=== PATIENT | female | born 1945 | race Hispanic/Latino ===

== ENCOUNTER 2018-09-28 10:57 | Inpatient (IN) | payer BC, MEDICARE ==
--- NOTE | 2018-09-28 11:18 | ED PDOC ---
Arrival/HPI - General Chief Complaint: Chest Pain Historian: Patient - Critical Care Critical Care Minutes: 45 minutes - History of Present Illness Narrative History of Present Illness (Text): 09/28/18 11:14 A 73 year old female, whose past medical history includes hypertension, presents to the emergency department with a complaint of rapid heart rate. Patient notes that she has been coughing for the past 3 days with associated white sputum production and diarrhea. Patient notes that she was being seen at her PMD's office when he advised her to come the emergency department for evaluation of rapid heart race in the office. The patient denies any pain at this time. She denies fevers, chills, headache, dizziness, chest pain, shortness of breath, dyspnea on exertion, abdominal pain, nausea, vomiting, back pain, neck pain, urinary/bowel changes, or any other complaint. PMD: Dr. Mary Time/Duration: Prior to Arrival Symptom Onset: Sudden Symptom Course: Unchanged Activities at Onset: Rest, Light Context: Home Past Medical History - Provider Review Nursing Documentation Reviewed: Yes - Infectious Disease Hx of Infectious Diseases: None - Reproductive Menopause: Yes - Cardiac Hx Hypertension: Yes - Pulmonary Hx Respiratory Disorders: No - Neurological Hx Neurological Disorder: No - HEENT Hx HEENT Disorder: No - Renal Hx Renal Disorder: No - Endocrine/Metabolic Hx Endocrine Disorders: No - Hematological/Oncological Hx Blood Disorders: No - Integumentary Hx Dermatological Disorder: No - Musculoskeletal/Rheumatological Hx Musculoskeletal Disorders: No - Gastrointestinal Hx Gastrointestinal Disorders: No - Genitourinary/Gynecological Hx Genitourinary Disorders: No - Psychiatric Hx Psychophysiologic Disorder: No Hx Substance Use: No - Anesthesia Hx Anesthesia: No Hx Anesthesia Reactions: No Hx Malignant Hyperthermia: No Family/Social History - Physician Review Nursing Documentation Reviewed: Yes Family/Social History: No Known Family HX Smoking Status: Never Smoked Hx Alcohol Use: No Hx Substance Use: No Allergies/Home Meds Allergies/Adverse Reactions: Allergies No Known Allergies Allergy (Verified 07/03/16 23:43) Home Medications: Home Meds Medication Instructions Recorded Confirmed amLODIPine [Norvasc] 0 mg PO DAILY 09/28/18 09/28/18 Review of Systems - Physician Review All systems were reviewed & negative as marked: Yes - Review of Systems Constitutional: absent: Fevers Respiratory: Cough, Sputum. absent: SOB Cardiovascular: Palpitations. absent: Chest Pain, LESTER Gastrointestinal: Diarrhea. absent: Abdominal Pain, Stool Changes, Nausea, Vomiting Genitourinary Female: absent: Urine Output Changes Musculoskeletal: absent: Back Pain, Neck Pain Neurological: absent: Headache, Dizziness Physical Exam Vital Signs Reviewed: Yes Vital Signs Temp Pulse Resp BP Pulse Ox 09/28/18 10:57 98.1 F 127 H 20 102/87 95 Temperature: Afebrile Blood Pressure: Normal Pulse: Tachycardic Respiratory Rate: Normal Appearance: Positive for: Well-Appearing, Non-Toxic, Comfortable Pain Distress: None Mental Status: Positive for: Alert and Oriented X 3 - Systems Exam Head: Present: Atraumatic, Normocephalic Pupils: Present: PERRL Extroacular Muscles: Present: EOMI Conjunctiva: Present: Normal Mouth: Present: Moist Mucous Membranes Neck: Present: Normal Range of Motion Respiratory/Chest: Present: Good Air Exchange, Rales (Rales at the bases bilaterally. ). No: Respiratory Distress, Accessory Muscle Use Cardiovascular: Present: Murmurs (Systolic murmur), Irregular Rhythm (irregularly irregular) Abdomen: No: Tenderness, Distention, Peritoneal Signs Back: Present: Normal Inspection Upper Extremity: Present: Normal Inspection. No: Cyanosis, Edema Lower Extremity: Present: Edema (trace edema bilaterally. ) Neurological: Present: GCS=15, CN II-XII Intact, Speech Normal Skin: Present: Warm, Dry, Normal Color. No: Rashes Psychiatric: Present: Alert, Oriented x 3, Normal Insight, Normal Concentration Medical Decision Making ED Course and Treatment: 09/28/18 11:21 Impression: A 73 year old female presents to the emergency department from PMD's office with a complaint of sudden onset rapid heart rate. Plan: -- EKG -- Chest X-ray -- Labs -- Blood Culture -- Cardizem -- Reassess and disposition Prior Visits: Notes and results from previous visits were reviewed. Progress Notes: 09/28/18 11:05: EKG read and interpreted by me shows A- Fib at 155 BPM. Normal [place]. 09/28/18 12:12: Case discussed in detail with Dr. Holt who accepts patient for admission to telemetry. Chest X-ray Dictator : Thelma Lock MD Report Date : 09/28/2018 12:03:52 IMPRESSION: Moderate right and small left pleural effusions. Suspect underlying compressive atelectasis however superimposed pneumonia cannot be excluded. Moderate pulmonary venous congestion. PROCEDURE: CT Chest with contrast Dictator : Neeraj Bhatti MD Report Date : 09/28/2018 13:12:44 IMPRESSION: Large right pleural effusion. Small left effusion. Right lower lobe consolidation. - Critical Care Critical Care Minutes: 45 minutes - Lab Interpretations I have reviewed the lab results: Yes - EKG Interpretation Interpreted by ED Physician: Yes Type: 12 lead EKG - Scribe Statement The provider has reviewed the documentation as recorded by the Scribe Fior Malave Provider Scribe Attestation: All medical record entries made by the Scribe were at my direction and personally dictated by me. I have reviewed the chart and agree that the record accurately reflects my personal performance of the history, physical exam, medical decision making, and the department course for this patient. I have also personally directed, reviewed, and agree with the discharge instructions and disposition. Disposition/Present on Arrival - Present on Arrival Any Indicators Present on Arrival: No History of DVT/PE: No History of Uncontrolled Diabetes: No Urinary Catheter: No History of Decub. Ulcer: No History Surgical Site Infection Following: None - Disposition Have Diagnosis and Disposition been Completed?: Yes Diagnosis: Rapid atrial fibrillation, New onset atrial fibrillation Disposition: HOSPITALIZED Disposition Time: 12:00 Condition: GUARDED
[2018-09-28 11:32] LABS: BASO # 0.01 K/mm3 (0.0-2.0); BASO % 0.1 % (0.0-3.0); EOS % 0.1 % (1.5-5.0); HEMOGLOBIN 14.2 g/dL (12.0-16.0); LYMPH # 1.1 (1.2-3.4); LYMPH % 11.3 % (22.0-35.0); MEAN CELL VOLUME 94.7 fl (80.0-105.0); MEAN CORPUSCULAR HEMOGLOBIN 31.3 pg (25.0-35.0); MEAN CORPUSCULAR HGB CONC 33.1 g/dl (31.0-37.0); MEAN PLATELET VOLUME 9.9 fl (7.0-11.0); MONO # 0.9 (0.1-0.6); MONO % 8.5 % (1.0-6.0); RBC 4.53 10^6/uL (3.5-6.1); RED CELL DISTRIBUTION WIDTH 14.7 % (11.5-14.5)
[2018-09-28 11:41] LABS: ALB/GLOB RATIO 1.3 (1.1-1.8); ALBUMIN 4.3 g/dL (3.0-4.8); ALT/SGPT 38 U/L (7-56); AST/SGOT 32 U/L (14-36); BLOOD UREA NITROGEN 17 mg/dL (7-21); CALCIUM 9.4 mg/dL (8.4-10.5); GFR NON-AFRICAN AMERICAN > 60
[2018-09-28 11:53] LABS: B-TYPE NATRIURETIC PEPTIDE 4070 pg/mL (0-450); TROPONIN I 0.02 ng/mL
[2018-09-28 11:59] LABS: FREE T4 1.87 ng/dL (0.78-2.19)
--- NOTE | 2018-09-28 12:07 | RAD ---
Date of service: 09/28/2018 HISTORY: cough r/o infiltrate COMPARISON: 07/30/2012 FINDINGS: LUNGS: There is moderate pulmonary venous congestion. There is airspace disease in both lower lobes. PLEURA: Moderate right and small left pleural effusions. No pneumothorax. CARDIOVASCULAR: Mild cardiomegaly with prominent central vasculature. There are aortic atherosclerotic calcifications present. OSSEOUS STRUCTURES: Within normal limits for the patient's age. VISUALIZED UPPER ABDOMEN: Normal. OTHER FINDINGS: None. IMPRESSION: Moderate right and small left pleural effusions. Suspect underlying compressive atelectasis however superimposed pneumonia cannot be excluded. Moderate pulmonary venous congestion.
[2018-09-28 12:13] LABS: T3 1.1 ng/mL (0.97-1.69)
[2018-09-28] MEDS ORDERED: Iohexol 350 MG/100 ML VIAL ONE (12:36)
--- NOTE | 2018-09-28 12:42 | CP.PCM.HP ---
<FabioLei - Last Filed: 09/28/18 12:47> History of Present Illness - History of Present Illness History of Present Illness: Lei Mccarthy D.O. PGY-3, Internal Medicine Resident, Dr. Holt's Service, H&P CC: new onset Afib 73-year-old female with a past medical history of hypertension who presents from her primary medical doctor's office after she was found to have new onset of atrial fibrillation. Patient was seen and examined in ER 4. Patient is accompanied by her son who was at bedside. Patient relates how over the last 3 to 4 days she has not been feeling well. Patient has been having a lot of cough that has been nonproductive except for may be just some whitish sputum. Denies any fevers or chills. Denies any sick contacts or recent long travel or immobility. Denies any recent cruises or visits to hotels or other in close spaces. Does admit that every time that she coughs she would have a little bit of diarrhea [place] 7. Unsure if she ate anything out of the ordinary. No recent antibiotic use. Patient states that she normally is compliant with her Norvasc of unknown strength but that this morning she was in a hi to get to the do ctor's office so she did not take it. At this time states that she is feeling much better. Still having a little bit of difficulty with deep breathing. Admits to chronic leg swelling that worsens throughout the day and improves overnight. No orthopnea though. Otherwise denies any fevers, chills, nausea, vomiting, lightheadedness, focal deficits dysuria, hematuria, or any other worrisome complaints. PMH: Hypertension SH: Denies tobacco use, social EtOH in the past, denies illicit drug use FH: Denies Allergies: NKA Meds: Norvasc of unknown strength PMD: Dr. Mary Present on Admission - Present on Admission Any Indicators Present on Admission: No Review of Systems - Review of Systems All systems: reviewed and no additional remarkable complaints except (as per HPI) Past Patient History - Infectious Disease Hx of Infectious Diseases: None - Past Social History Smoking Status: Never Smoked - CARDIAC Hx Hypertension: Yes - PULMONARY Hx Respiratory Disorders: No - NEUROLOGICAL Hx Neurological Disorder: No - HEENT Hx HEENT Problems: No - RENAL Hx Chronic Kidney Disease: No - ENDOCRINE/METABOLIC Hx Endocrine Disorders: No - HEMATOLOGICAL/ONCOLOGICAL Hx Blood Disorders: No - INTEGUMENTARY Hx Dermatological Problems: No - MUSCULOSKELETAL/RHEUMATOLOGICAL Hx Musculoskeletal Disorders: No - GASTROINTESTINAL Hx Gastrointestinal Disorders: No - GENITOURINARY/GYNECOLOGICAL Hx Genitourinary Disorders: No - PSYCHIATRIC Hx Psychophysiologic Disorder: No Hx Substance Use: No - SURGICAL HISTORY Hx Surgeries: No - ANESTHESIA Hx Anesthesia: No Hx Anesthesia Reactions: No Hx Malignant Hyperthermia: No Meds Allergies/Adverse Reactions: Allergies Allergy/AdvReac Type Severity Reaction Status Date / Time No Known Allergies Allergy Verified 07/03/16 23:43 Physical Exam - Constitutional Additional comments: elderly female, mildly uncomfortable, anxious - Head Exam Head Exam: ATRAUMATIC, NORMOCEPHALIC - Eye Exam Eye Exam: EOMI. absent: Scleral icterus - ENT Exam ENT Exam: Mucous Membranes Moist, Normal Oropharynx - Neck Exam Neck exam: Positive for: Normal Inspection. Negative for: Lymphadenopathy - Respiratory Exam Respiratory Exam: Rales (bibasilar, decreased breath sounds over RLL) - Cardiovascular Exam Cardiovascular Exam: Irregular Rhythm, +S1, +S2 - GI/Abdominal Exam GI & Abdominal Exam: Normal Bowel Sounds, Soft. absent: Tenderness - Extremities Exam Extremities exam: Positive for: pedal edema (+2). Negative for: calf tenderness - Neurological Exam Neurological exam: Alert, CN II-XII Intact, Oriented x3 - Skin Skin Exam: Dry, Warm Results - Vital Signs Recent Vital Signs: Last Vital Signs Temp 98.1 F 09/28/18 10:57 Pulse 88 09/28/18 11:41 Resp 19 09/28/18 11:56 BP 148/77 09/28/18 11:56 Pulse Ox 96 09/28/18 11:56 - Labs Result Diagrams: 09/28/18 11:17 09/28/18 11:17 Labs: Laboratory Results - last 24 hr 09/28/18 09/28/18 09/28/18 11:17 11:17 11:17 WBC 10.0 RBC 4.53 Hgb 14.2 Hct 42.9 MCV 94.7 MCH 31.3 MCHC 33.1 RDW 14.7 H Plt Count 318 MPV 9.9 Neut % (Auto) 80.0 H Lymph % (Auto) 11.3 L [place] % (Auto) 8.5 H Eos % (Auto) 0.1 L Baso % (Auto) 0.1 Lymph # (Auto) 1.1 L [place] # (Auto) 0.9 H Eos # (Auto) 0.0 Baso # (Auto) 0.01 Absolute Neuts (auto) 7.98 H Sodium 139 Potassium 4.0 Chloride 103 Carbon Dioxide 25 Anion Gap 15 BUN 17 Creatinine 0.7 Est GFR ( Amer) > 60 Est GFR (Non-Af Amer) > 60 Random Glucose 139 H Calcium 9.4 Magnesium 2.1 Total Bilirubin 2.1 H AST 32 ALT 38 Alkaline Phosphatase 135 H Lactate Dehydrogenase 557 Total Creatine Kinase 64 Troponin I 0.02 NT-Pro-B Natriuret Pep 4070 H Total Protein 7.6 Albumin 4.3 Globulin 3.3 Albumin/Globulin Ratio 1.3 Free T4 1.87 Total T3 1.10 TSH 3rd Generation 4.73 H Assessment & Plan - Assessment and Plan (Free Text) Assessment: 73-year-old female with a past medical history of hypertension who presents from her primary medical doctor's office after she was found to have new onset of atrial fibrillation. Plan: 1. New onset atrial fibrillation 2. Bilateral pleural effusions 3. Uncontrolled blood pressure 4. Shortness of breath with nonproductive cough Patient will be admitted for evaluation. Received 20 mg of Cardizem IV in the ER with improvement in her heart rate. EKG on presentation showed atrial fibrillation with rapid ventricular rate at 155 bpm. Patient then remembered that she takes amlodipine and on low-dose, given 10 mg of amlodipine in the ER. Presentation is concerning as she has not had atrial fibrillation in the past and not appears to have signs of acute heart failure. BNP elevated. 20 of Lasix to be given now in the ER. We will continue with 20 mg twice daily. Will continue amlodipine 10 mg p.o. daily. We will repeat troponins, first ones are negative. Will obtain a cardiology consult with Dr. Maradiaga. Echocardiogram has been ordered. We will start a heart healthy diet. To better elucidate her pulmonary issues at this time will obtain a chest CT with contrast. Is afebrile with no leukocytosis so infectious etiology does not seem likely. However will obtain a urinalysis. Discussion was had at bedside with both the patient and the patient's son about her current clinical situation. All questions were welcomed and answered to the verbal satisfaction. We will follow patient closely. Will elevate head of bed. Supplement O2 via nasal cannula as needed shortness of breath. Patient was seen and examined and case to be discussed at length with attending physician. - Date & Time Date: 09/28/18 Time: 12:20 <Joe Holt - Last Filed: 09/29/18 15:46> Results - Vital Signs Recent Vital Signs: Last Vital Signs Temp 98.1 F 09/29/18 12:00 Pulse 87 09/29/18 12:00 Resp 19 09/29/18 12:00 BP 151/84 H 09/29/18 12:00 Pulse Ox 94 L 09/29/18 06:00 - Labs Result Diagrams: 09/29/18 06:40 09/29/18 06:40 Labs: Laboratory Results - last 24 hr 09/28/18 09/29/18 09/29/18 17:47 06:40 06:40 WBC 5.8 D RBC 4.02 Hgb 12.3 Hct 38.3 MCV 95.3 MCH 30.6 MCHC 32.1 RDW 14.7 H Plt Count 256 MPV 9.9 Neut % (Auto) 62.4 Lymph % (Auto) 25.2 [place] % (Auto) 11.3 H Eos % (Auto) 0.9 L Baso % (Auto) 0.2 Lymph # (Auto) 1.5 [place] # (Auto) 0.7 H Eos # (Auto) 0.1 Baso # (Auto) 0.01 Absolute Neuts (auto) 3.60 Sodium 139 Potassium 3.7 Chloride 102 Carbon Dioxide 29 Anion Gap 11 BUN 15 Creatinine 0.7 Est GFR ( Amer) > 60 Est GFR (Non-Af Amer) > 60 Random Glucose 110 Hemoglobin A1c Calcium 8.5 Phosphorus 3.5 Magnesium 2.1 Total Bilirubin 1.6 H AST 24 ALT 42 Alkaline Phosphatase 87 Troponin I 0.02 0.02 Total Protein 6.5 Albumin 3.6 Globulin 3.0 Albumin/Globulin Ratio 1.2 Triglycerides Cholesterol LDL Cholesterol Direct HDL Cholesterol 09/29/18 09/29/18 07:00 07:00 WBC RBC Hgb Hct MCV MCH MCHC RDW Plt Count MPV Neut % (Auto) Lymph % (Auto) [place] % (Auto) Eos % (Auto) Baso % (Auto) Lymph # (Auto) [place] # (Auto) Eos # (Auto) Baso # (Auto) Absolute Neuts (auto) Sodium Potassium Chloride Carbon Dioxide Anion Gap BUN Creatinine Est GFR ( Amer) Est GFR (Non-Af Amer) Random Glucose Hemoglobin A1c 5.6 Calcium Phosphorus Magnesium Total Bilirubin AST ALT Alkaline Phosphatase Troponin I Total Protein Albumin Globulin Albumin/Globulin Ratio Triglycerides 64 Cholesterol 143 LDL Cholesterol Direct 91 HDL Cholesterol 46 Assessment & Plan - Assessment and Plan (Free Text) Plan: Pt seen and examined by me. I have reviewed the note of the medical office professional instructor and I agree with it. I have discussed the assessment and plan with the resident. I have reviewed the medications and the last labs. Pt with new onset A fib. She has a R pleural effusion and will need further evaluation. She has been started on Lasix. An echo has been ordered. TSH is nl. She is on a cardizem drip and will need to change to PO medications. She may need stress test. She has a cough and is on medications. CT of the chest has been reviewed.
--- NOTE | 2018-09-28 13:18 | CT ---
Date of service: 09/28/2018 PROCEDURE: CT Chest with contrast HISTORY: SOB+cough x3d, new onset Afib COMPARISON: None available. TECHNIQUE: Contiguous axial images were obtained through the chest with intravenous contrast enhancement. Sagittal and coronal reconstructions were performed. IV contrast: 100 cc of Omni 350 Radiation dose: Total exam DLP = 363.55 mGy-cm. This CT exam was performed using one or more of the following dose reduction techniques: Automated exposure control, adjustment of the mA and/or kV according to patient size, and/or use of iterative reconstruction technique. FINDINGS: LUNGS: Dense consolidation in the right lower lobe with air bronchograms. MEDIASTINUM: Unremarkable thoracic aorta. No aneurysm or dissection. Normal sized heart. Main pulmonary artery unremarkable. No vascular congestion. No lymphadenopathy. Aortic calcification PLEURA: Large pleural effusion on the right. Small effusion on the left BONES: No fracture. No destructive lesion. UPPER ABDOMEN: Grossly unremarkable. OTHER FINDINGS: None. IMPRESSION: Large right pleural effusion. Small left effusion. Right lower lobe consolidation.
[2018-09-28 14:48] LABS: URINE BILIRUBIN NEGATIVE (NEGATIVE); URINE BLOOD NEGATIVE (NEGATIVE); URINE GLUCOSE (UA) NEGATIVE (NEGATIVE); URINE LEUKOCYTE ESTERASE TRACE Leu/uL (NEGATIVE); URINE PROTEIN 30 mg/dL (<30 mg/dL); URINE UROBILINOGEN 0.2 E.U./dL (<1 E.U./dL)
[2018-09-28 14:55] LABS: URINE APPEARANCE CLEAR (CLEAR); URINE COLOR YELLOW (YELLOW)
[2018-09-28 14:58] LABS: URINE BACTERIA MANY /hpf; URINE RBC 0 - 2 /hpf (0-2)
[2018-09-28 15:42] VITALS: BMI 31.1
[2018-09-28] MEDS: diltiaZEM IVPB 100mg in NS 100 ML IV PRN ×2 (15:42→23:46)
--- NOTE | 2018-09-28 18:24 | CARD ---
APPROVED REPORT Date of service: 09/28/2018 EXAM: Two-dimensional and M-mode echocardiogram with Doppler and color Doppler. INDICATION Atrial Fibrillation 2D DIMENSIONS Left Atrium (2D)4.9 (1.6-4.0cm)IVSd1.3 (0.7-1.1cm) LVDd4.5 (3.9-5.9cm)PWd1.3 (0.7-1.1cm) LVDs3.2 (2.5-4.0cm)FS (%) 29.2 % LVEF (%)56.1 (>50%) M-Mode DIMENSIONS Aortic Root2.70 (2.2-3.7cm)Aortic Cusp Exc.1.30 (1.5-2.0cm) Aortic Valve AoV Peak Penuymmm908.0cm/[place] Peak GR.23mmHg Mitral Valve E/A ratio0.0 TDI E/Lateral E'0.0E/Medial E'0.0 Tricuspid Valve TR Peak [id number] [id number] Peak Gr.36mmHg [id number] LEFT VENTRICLE The left ventricle is normal size. There is mild concentric left ventricular hypertrophy. The left ventricular function is normal. The left ventricular ejection fraction is within the normal range. There is normal LV segmental wall motion. RIGHT VENTRICLE The right ventricle is normal size. The right ventricular systolic function is normal. ATRIA The left atrium is moderately dilated. The right atrium is mildly dilated. The interatrial septum is intact with no evidence for an atrial septal defect. AORTIC VALVE The aortic valve is moderately thickened. There is moderate aortic regurgitation. There is no aortic valvular stenosis. MITRAL VALVE The mitral valve is moderately thickened. Mitral regurgitation is moderate. TRICUSPID VALVE The tricuspid valve is normal in structure. There is moderate tricuspid regurgitation. PULMONIC VALVE The pulmonary valve is normal in structure. GREAT VESSELS The aortic root is normal in size. The IVC is normal in size and collapses >50% with inspiration. PERICARDIAL EFFUSION There is no pleural effusion. There is no pericardial effusion. <Conclusion> Biatrial enlargement. Mild concentric LVH. Normal LV systolic function. Moderate MR. Moderate AI. Moderate TR.
[2018-09-28] MEDS: guaiFENesin-DM 600-30 mg ER Tab PO SCH (19:27)
--- NOTE | 2018-09-28 20:56 | CARD ---
APPROVED REPORT Date of service: 09/28/2018 EKG Measurement Heart [id number] <Conclusion> Atrial fibrillation with rapid ventricular response Anteroseptal infarct, age undetermined NDSSTT abnormalities. CCR Abnormal ECG
[2018-09-29 07:09] LABS: BASO # 0.01 K/mm3 (0.0-2.0); BASO % 0.2 % (0.0-3.0); EOS # 0.1 (0.0-0.7); EOS % 0.9 % (1.5-5.0); HEMOGLOBIN 12.3 g/dL (12.0-16.0); LYMPH # 1.5 (1.2-3.4); LYMPH % 25.2 % (22.0-35.0); MEAN CELL VOLUME 95.3 fl (80.0-105.0); MEAN CORPUSCULAR HEMOGLOBIN 30.6 pg (25.0-35.0); MEAN CORPUSCULAR HGB CONC 32.1 g/dl (31.0-37.0); MEAN PLATELET VOLUME 9.9 fl (7.0-11.0); MONO # 0.7 (0.1-0.6); MONO % 11.3 % (1.0-6.0); RBC 4.02 10^6/uL (3.5-6.1); RED CELL DISTRIBUTION WIDTH 14.7 % (11.5-14.5); WHITE BLOOD COUNT 5.8 10^3/uL (4.5-11.0)
[2018-09-29 07:36] LABS: TROPONIN I 0.02 ng/mL
[2018-09-29 07:37] LABS: ALB/GLOB RATIO 1.2 (1.1-1.8); ALBUMIN 3.6 g/dL (3.0-4.8); ALT/SGPT 42 U/L (7-56); AST/SGOT 24 U/L (14-36); BLOOD UREA NITROGEN 15 mg/dL (7-21); CALCIUM 8.5 mg/dL (8.4-10.5); GFR NON-AFRICAN AMERICAN > 60
[2018-09-29 08:15] LABS: HDL CHOLESTEROL 46 mg/dL (29-60)
[2018-09-29 08:26] LABS: LDL CHOLESTEROL 91 mg/dL (0-129)
[2018-09-29] MEDS: guaiFENesin-DM 600-30 mg ER Tab PO SCH ×2 (09:00→18:04)
[2018-09-29] MEDS: Enoxaparin 80 mg Syringe SC SCH ×2 (09:00→19:31)
[2018-09-29] MEDS: diltiaZEM IVPB 100mg in NS 100 ML IV PRN (09:00)
--- NOTE | 2018-09-29 11:06 | CP.PCM.PCO ---
Additional Comments - Additional Comments Additional Comments: new onset afib continue management as per cardiology, possible thoracentesis by .
--- NOTE | 2018-09-29 12:25 | CP.PCM.PN ---
<Lei Mccarthy - Last Filed: 09/29/18 15:40> Subjective - Date & Time of Evaluation Date of Evaluation: 09/29/18 Time of Evaluation: 07:10 - Subjective Subjective: Lei Mccarthy D.O. PGY-3, Internal Medicine Resident, Dr. Holt's Service, Progress Note 73-year-old female with a past medical history of hypertension who presents from her primary medical doctor's office after she was found to have new onset of atrial fibrillation. Patient was seen and examined at bedside. States that she feels better than on arrival but still some shortness of breath. Somewhat anxious. Wants to get better. Objective - Vital Signs/Intake and Output Vital Signs (last 24 hours): Temp Pulse Resp BP Pulse Ox 98.1 F 87 19 151/84 H 94 L 09/29/18 12:00 09/29/18 12:00 09/29/18 12:00 09/29/18 12:00 09/29/18 06:00 Intake and Output: 09/29/18 09/29/18 06:59 18:59 Intake Total 340 100 Balance 340 100 - Medications Medications: Current Medications Arformoterol Tartrate (Brovana) 15 mcg IH [id number] [facility] Budesonide (Pulmicort Respules) 0.5 mg IH [id number] [facility] Clonidine HCl (Catapres) 0.1 mg PO Q6 PRN PRN Reason: hypertension Enoxaparin Sodium (Lovenox) 70 mg SC Q12H [facility]; Protocol Last Admin: 09/29/18 09:00 Dose: 70 mg Furosemide (Lasix) 40 mg IVP BID [facility] Guaifenesin/Dextromethorphan (Mucinex-Dm 600-30 Mg) 1 tab PO BID [facility] Last Admin: 09/29/18 09:00 Dose: 1 tab Metoprolol Tartrate (Lopressor) 50 mg PO BRKDIN [facility] Spironolactone (Aldactone) 25 mg PO BID [facility] - Labs Labs: 09/29/18 06:40 09/29/18 06:40 - Constitutional Additional comments: elderly female, well nourished, anxious - Head Exam Head Exam: ATRAUMATIC, NORMOCEPHALIC - Eye Exam Eye Exam: EOMI. absent: Scleral icterus - ENT Exam ENT Exam: Mucous Membranes Moist, Normal Oropharynx - Neck Exam Neck exam: Positive for: Normal Inspection. Negative for: Lymphadenopathy - Respiratory Exam Respiratory Exam: Rales somewhat decreased, better air movement, dullness to percussion midway thru right lung ontiveros with decreased breath sounds over RLL - Cardiovascular Exam Cardiovascular Exam: Irregular Rhythm, +S1, +S2 - GI/Abdominal Exam GI & Abdominal Exam: Normal Bowel Sounds, Soft. absent: Tenderness - Extremities Exam Extremities exam: Positive for: pedal edema (+2). Negative for: calf tenderness - Neurological Exam Neurological exam: Alert, CN II-XII Intact, Oriented x3 - Skin Skin Exam: Dry, Warm Assessment and Plan - Assessment and Plan (Free Text) Assessment: 73-year-old female with a past medical history of hypertension who presents from her primary medical doctor's office after she was found to have new onset of atrial fibrillation. Plan: 1. New onset atrial fibrillation 2. New decompensated heart failure 3. Bilateral pleural effusions R>L 4. Uncontrolled blood pressure 5. Shortness of breath with nonproductive cough Patient symptomatically somewhat better. Heart rate has been controlled with Cardizem drip. Cardiology note was reviewed and recommendations appreciated. Patient has been transitioned to metoprolol p.o. Patient's furosemide has been increased from 20 mg to 40 mg twice daily and spironolactone added by cardiology. Repeat electrocardiogram shows the patient is still in atrial fibrillation. Echocardiogram revealed evidence of biatrial enlargement and normal LV systolic function with mild concentric LVH, moderate mitral regurg, moderate tricuspid regurg, and moderate aortic insufficiency. Troponins have been negative x3. Etiology of new atrial fibrillation most likely secondary to hypertension and valvular disease as noted. Patient has a CHADSVASC of 4 and given her atrial fibrillation will be started on Lovenox full therapeutic dose. We will request pulmonary consultation with Dr. Estrada. We will also request consultation with interventional radiology Dr. Khalil for possible thoracentesis and fluid analysis/cytology given the large difference between the right and left and elucidate any other etiologies. Blood cultures have been negative 2 out of [address] 1[address] Chest CT did reveal a possible consolidation although this is most likely compressive atelectasis from the large right pleural effusion and patient has no signs of active infection at this time so we will not be starting antibiotics. Incentive spirometer ordered and patient educated on its use. Patient was seen and examined and case to be discussed at length with attending physician. <JonathonJoe S - Last Filed: 09/29/18 15:59> Objective - Vital Signs/Intake and Output Vital Signs (last 24 hours): Temp Pulse Resp BP Pulse Ox 98.1 F 87 19 151/84 H 94 L 09/29/18 12:00 09/29/18 12:00 09/29/18 12:00 09/29/18 12:00 09/29/18 06:00 Intake and Output: 09/29/18 09/29/18 06:59 18:59 Intake Total 340 100 Balance 340 100 - Medications Medications: Current Medications Arformoterol Tartrate (Brovana) 15 mcg IH [id number] [facility] Budesonide (Pulmicort Respules) 0.5 mg IH [id number] [facility] Clonidine HCl (Catapres) 0.1 mg PO Q6 PRN PRN Reason: hypertension Enoxaparin Sodium (Lovenox) 70 mg SC Q12H [facility]; Protocol Last Admin: 09/29/18 09:00 Dose: 70 mg Furosemide (Lasix) 40 mg IVP BID [facility] Guaifenesin/Dextromethorphan (Mucinex-Dm 600-30 Mg) 1 tab PO BID [facility] Last Admin: 09/29/18 09:00 Dose: 1 tab Metoprolol Tartrate (Lopressor) 50 mg PO BRKDIN [facility] Spironolactone (Aldactone) 25 mg PO BID [facility] - Labs Labs: 09/29/18 06:40 09/29/18 06:40 Assessment and Plan - Assessment and Plan (Free Text) Plan: Pt seen and examined by me. I have reviewed the note of the medical sales associate and I agree with it. I have discussed the assessment and plan with the resident. I have reviewed the medications and the last labs. Pt with new onset A fib. She has a R pleural effusion that will need further evaluation.
--- NOTE | 2018-09-29 12:32 | CON ---
DATE OF CONSULTATION: 09/29/2018 REQUESTING PHYSICIAN: Dr. Holt. REASON FOR CONSULTATION: Dyspnea, rapid atrial fibrillation. HISTORY: This is a 73-year-old woman with a history of hypertension, who presented to the emergency room complaining of worsening cough with a productive whitish sputum as well as rapid heart rate. She was seen by Dr. Mary in the office and noted be in rapid atrial fibrillation and was sent to the emergency room for evaluation. She denies any prior cardiac history. She denies any chest pain. She reportedly had a stress test several years ago, and this was reportedly unremarkable. In the emergency room, she was started on IV diltiazem and dose was increased as needed. The patient is now seen, lying in bed on telemetry. She is comfortable. She remains in atrial fibrillation, continues to have some productive cough. She is afebrile. PAST MEDICAL HISTORY: Her past history is notable for the problems mentioned above. She was hospitalized several years ago for severe epistaxis. She has had no recent bleeding episodes. MEDICATIONS: Her medications at home are amlodipine. Her current medications in the hospital include Brovana, IV diltiazem, Catapres p.r.n., Lasix 20 mg IV b.i.d., Lovenox, Mucinex, Norvasc 10 mg daily, and Pulmicort. ALLERGIES: NONE. SOCIAL HISTORY: She does not smoke or drink. She lives with her . FAMILY HISTORY: Both parents are from age-related illnesses. There is no family history of premature heart disease. REVIEW OF SYSTEMS: A 12-point review of systems is notably mainly for the problems mentioned above. She denies any PND or orthopnea at home. She has had mild ankle edema at times. PHYSICAL EXAMINATION: GENERAL: She is an elderly woman, who appears comfortable at rest. VITAL SIGNS: Her blood pressure is 136/64, pulse of 80 and irregularly regular, respirations are 16. She is in atrial fibrillation. She is afebrile. HEENT: Normocephalic, atraumatic. NECK: No JVD. Carotid upstrokes are 2+ bilaterally. CHEST: Diminished breath sounds at both bases with bilateral scattered rales. HEART: PMI displaced laterally with a systolic murmur at the left sternal border and apex. There is also a soft diastolic murmur present at the left sternal border. ABDOMEN: Soft, nontender with normoactive bowel sounds. EXTREMITIES: Trace ankle edema. SKIN: Warm and dry. PSYCHIATRIC: Normal mood and affect. NEUROLOGICAL: Alert and oriented x3. No gross motor or sensory deficits notable. DIAGNOSTIC DATA: Potassium 3.7, BUN and creatinine are 15 and 0.7. White count is 5.8, hemoglobin and hematocrit are 12.3 and 38.3 with a platelet count of 256,000, and BNP 4070. Three sets of cardiac enzymes are negative. TSH 4.73. Electrocardiogram reveals atrial fibrillation with a rapid ventricular response and a prior anteroseptal myocardial fraction pattern cannot be excluded, nonspecific ST-T abnormalities are noted. Chest x-ray reveals enlarged cardiac silhouette with bilateral effusions greater on the right than on the left as well as mild to moderate congestive changes. Echocardiogram was reviewed and reveals evidence of biatrial enlargement and normal LV systolic function with mild concentric LVH, moderate mitral regurgitation, moderate tricuspid regurgitation, as well as moderate aortic insufficiency. IMPRESSION: 1. Decompensated congestive heart failure, acute, diastolic, likely secondary to rapid atrial fibrillation and valvular heart disease. 2. Multivalvular heart disease with aortic, tricuspid, and mitral insufficiency. 3. Atrial fibrillation, initially with rapid ventricular response, likely secondary to a valvular heart disease and hypertension. 4. Rest of problems as noted. RECOMMENDATIONS: Oral anticoagulant therapy should be initiated at this time. If tolerated, oral beta-agus therapy will be begun in place of IV diltiazem. Norvasc can continue for now. Her old records will be reviewed including a prior stress test. IV diuretic therapy should continue. A repeat chest x-ray in 2-3 days would be advisable, and if her pleural effusion remains fairly large, consideration may need to be given to a thoracentesis. The need for sodium restriction was reviewed with her. Further recommendations will be made based upon her clinical course and response to the above interventions. Thank you for this consultation. I will be happy to follow along as needed. Rustam Alonso MD [facility]
--- NOTE | 2018-09-29 13:54 | CON ---
DATE: 09/29/2018 PULMONARY CONSULTATION REASON FOR CONSULTATION: Pleural effusion. REFERRING PHYSICIAN: oJe Holt MD. I did discuss the case with the nurse at length. I have also reviewed the chart at length, and discussed the case with the patient at length. HISTORY OF PRESENT ILLNESS: The patient is a 73-year-old female, with past medical history significant for hypertension, who presents to [facility] with a 5-day history of increasing shortness of breath at rest, dyspnea on exertion, cough, and whitish sputum production. There is no history of chest pain, coughing up of blood, or chest pain - made worse with deep respirations. There is no history of temperatures, chills, or infectious exposure. There is no history of night sweats, weight loss, or appetite change prior to the above events. There is no history of leg or calf pains. However, the patient does state that her ankles have been swollen for the past 5 days. No history of syncope or diaphoresis. No history of recent travel or trauma. REVIEW OF SYSTEMS: The patient does state to some diarrhea at home. No history of nausea or vomiting. No acute urinary symptoms. No new neurologic complaints. Rest of the review of systems is negative. ALLERGIES: THERE ARE NO KNOWN ALLERGIES. SOCIAL HISTORY: Negative for tobacco, negative for alcohol. FAMILY HISTORY: No inheritable diseases. HOME MEDICATIONS: Include amlodipine. PHYSICAL EXAMINATION: GENERAL: The patient appears comfortable this morning. She is not short of breath at rest. VITAL SIGNS: Temperature is 98.6, pulse 83, respiratory rate 18/20, blood pressure 136/67. Oxygen saturation on nasal cannula - 94%. HEENT: Normocephalic, atraumatic. No JVD. CARDIOVASCULAR: Systolic ejection murmur at the lower left sternal border. Positive S3 gallop. LUNGS: Decreased breath sounds with crackles - right lower lobe, left base. No rhonchi. No wheezing. EXTREMITIES: Positive for mild edema, no cyanosis, no clubbing. Calves are nontender to palpation. GASTROINTESTINAL: Abdomen is soft, nontender, and nondistended. Bowel sounds are positive. SKIN: No acute rash. NEUROLOGIC: Exam limited at the present time. PERTINENT LABORATORY DATA: CAT scan of the chest was done yesterday and reviewed. There is a large pleural effusion noted on the right. There is a small pleural effusion noted on the left. There is a right lower lobe consolidation, most consistent with compressive atelectasis. CBC: White count 5.8K, hemoglobin 12.3, hematocrit 38.3, platelets of 256,000. Complete metabolic profile: Bilirubin 1.6. Rest of the metabolic profile is within normal limits. Initial B-type natriuretic peptide, 4070. EKG done in the emergency room - rapid atrial fibrillation. IMPRESSION: 1. Acute congestive heart failure. 2. Bilateral pleural effusions. 3. Rapid atrial fibrillation. 4. Mild bronchitis. PLAN: Again, I did discuss the case with the nurse at length. I have also reviewed the chart at length, and discussed the case with the patient at length. The patient presents to [facility] with a 5-day history of worsening pulmonary symptoms. Apparently, the patient was at her private medical doctor's yesterday - and atrial fibrillation was diagnosed. The patient was then sent to the emergency room for additional evaluation. I did review the CAT scan of the chest. Findings are noted above. There are bilateral pleural effusions - right much worse than left. There is also consolidation of the right lower lobe - probably compressive atelectasis. Dr. Dominick Khalil (Interventional Radiology) has been called on the case for thoracentesis. On physical exam, there is no significant bronchospasm. In addition, there is no significant alveolar-arterial gradient. In addition to the above, the patient does have a history of cough with whitish sputum production. The patient is currently on a diltiazem drip. She is also on intravenous Lasix and therapeutic Lovenox. I will try starting the patient on Brovana and inhaled Pulmicort. If the heart rate climbs, I will discontinue the beta agonist. The patient does appear improved this morning. She is comfortable and states she feels better. Additional pulmonary intervention will be based on the above results, as well as the clinical status of the patient. I will discuss the above with Dr. Holt. Thank you very much for this pulmonary consultation. Jarred Estrada MD [facility]
--- NOTE | 2018-09-29 18:38 | CARD ---
APPROVED REPORT Date of service: 09/29/2018 EKG Measurement Heart [id number] <Conclusion> Atrial fibrillation Septal infarct, age undetermined Abnormal ECG
[2018-09-29] MEDS: Budesonide 0.5 mg/2 ml Inhal Susp UD IH SCH (20:09)
[2018-09-29] MEDS: Arformoterol 15 mcg/2 ml Inh Sol IH SCH (20:09)
[2018-09-30 07:26] LABS: BLOOD UREA NITROGEN 15 mg/dL (7-21); GFR NON-AFRICAN AMERICAN > 60
[2018-09-30] MEDS: Enoxaparin 80 mg Syringe SC SCH ×2 (08:26→21:55)
--- NOTE | 2018-09-30 09:00 | PN ---
DATE: 09/30/2018 PULMONARY NOTE SUBJECTIVE: The patient appears comfortable this morning. She is not short of breath at rest. PHYSICAL EXAMINATION: VITAL SIGNS: Temperature is 97.8, pulse 93, respirations 18/20, blood pressure 130/76. Oxygen saturation on nasal cannula - 95%. HEENT: Normocephalic, atraumatic. No JVD. CARDIOVASCULAR: Systolic ejection murmur at the lower left sternal border. Positive S3 gallop. LUNGS: Decreased breath sounds with crackles - right lower lobe, left base. No rhonchi. No wheezing. GASTROINTESTINAL: Abdomen is soft, nontender, nondistended. Bowel sounds are positive. EXTREMITIES: Less edema, no cyanosis, no clubbing. Calves are nontender to palpation. SKIN: No acute rash. NEUROLOGIC: Exam limited at the present time. IMPRESSION: 1. Acute congestive heart failure. 2. Bilateral pleural effusions. 3. Rapid atrial fibrillation. 4. Mild bronchitis. PLAN: The patient appears comfortable this morning. She is not short of breath at rest. She does state to feeling better overall. On physical exam, there is no significant bronchospasm noted. In addition, the alveolar arterial gradient is less. I will continue the current nebulizer treatments and inhaled steroids for now. I would continue with the treatment for congestive heart failure and atrial fibrillation as per Cardiology. Input by Dr. Maradiaga is noted. We are also awaiting input from Dr. Dominick Khalil (Interventional Radiology) for possible thoracentesis. The patient does feel better and is clinically improved this morning. However, given the above, her future status/prognosis does remain somewhat guarded. I will discuss the above with the attending physician. Jarred Estrada MD [facility]
--- NOTE | 2018-09-30 09:05 | CP.PCM.PN ---
<Lei Mccarthy - Last Filed: 09/30/18 11:51> Subjective - Date & Time of Evaluation Date of Evaluation: 09/30/18 Time of Evaluation: 07:10 - Subjective Subjective: Lei Mccarthy D.O. PGY-3, Internal Medicine Resident, Dr. Holt's Service, Progress Note 73-year-old female with a past medical history of hypertension who presents from her primary medical doctor's office after she was found to have new onset of atrial fibrillation. Patient was seen and examined at bedside. Continues to be somewhat anxious about her medical state. Overall no acute complaints however. Personally ambulated with patient around the floor without any issues. Objective - Vital Signs/Intake and Output Vital Signs (last 24 hours): Temp Pulse Resp BP Pulse Ox 98 F 130 H 20 143/100 H 96 09/30/18 06:00 09/30/18 08:26 09/30/18 06:00 09/30/18 08:26 09/30/18 08:00 Intake and Output: 09/30/18 09/30/18 06:59 18:59 Intake Total 180 Balance 180 - Medications Medications: Current Medications Arformoterol Tartrate (Brovana) 15 mcg IH [id number] [facility] Last Admin: 09/29/18 20:09 Dose: 15 mcg Budesonide (Pulmicort Respules) 0.5 mg IH [id number] [facility] Last Admin: 09/29/18 20:09 Dose: 0.5 mg Clonidine HCl (Catapres) 0.1 mg PO Q6 PRN PRN Reason: hypertension Enoxaparin Sodium (Lovenox) 70 mg SC Q12H [facility]; Protocol Last Admin: 09/30/18 08:26 Dose: 70 mg Furosemide (Lasix) 40 mg IVP BID [facility] Last Admin: 09/29/18 18:04 Dose: 40 mg Guaifenesin/Dextromethorphan (Mucinex-Dm 600-30 Mg) 1 tab PO BID [facility] Last Admin: 09/29/18 18:04 Dose: 1 tab Metoprolol Tartrate (Lopressor) 50 mg PO BRKDIN [facility] Last Admin: 09/30/18 08:26 Dose: 50 mg Spironolactone (Aldactone) 25 mg PO BID [facility] Last Admin: 09/29/18 18:05 Dose: 25 mg - Labs Labs: 09/29/18 06:40 09/30/18 06:45 - Constitutional Additional comments: elderly female, well nourished, anxious - Head Exam Head Exam: ATRAUMATIC, NORMOCEPHALIC - Eye Exam Eye Exam: EOMI. absent: Scleral icterus - ENT Exam ENT Exam: Mucous Membranes Moist, Normal Oropharynx - Neck Exam Neck exam: Positive for: Normal Inspection. Negative for: Lymphadenopathy - Respiratory Exam Respiratory Exam: less rales, still dullness on RLL - Cardiovascular Exam Cardiovascular Exam: Irregular Rhythm, +S1, +S2 - GI/Abdominal Exam GI & Abdominal Exam: Normal Bowel Sounds, Soft. absent: Tenderness - Extremities Exam Extremities exam: Positive for: pedal edema (+1). Negative for: calf tenderness - Neurological Exam Neurological exam: Alert, CN II-XII Intact, Oriented x3 - Skin Skin Exam: Dry, Warm Assessment and Plan - Assessment and Plan (Free Text) Assessment: 73-year-old female with a past medical history of hypertension who presents from her primary medical doctor's office after she was found to have new onset of atrial fibrillation. Plan: 1. New onset atrial fibrillation 2. New decompensated heart failure 3. Bilateral pleural effusions 4. Uncontrolled blood pressure 5. Shortness of breath with nonproductive cough Rate has been controlled with metoprolol 50 mg p.o. at breakfast and dinner. Continue with furosemide 40 mg twice daily and spironolactone 25 mg twice daily for signs of heart failure. Continue therapeutic Lovenox given her atrial fibrillation. Pulmonary consultation was reviewed and appreciated. Discussed case with pulmonary Dr. Estrada. Cardiology consultation reviewed and appreciated. Discussed at length with patient about the importance of anticoagulation and taking his medication every day given her increased risk for stroke with atrial fibrillation, all questions were welcomed and answered. We will discuss the topic again with the patient and noted as well to reinforce. Patient is ambulatory, personally went around the floor with her without any acute issues except for some mild shortness of breath on deep inspiration. Reinforced the importance of incentive spirometer use. Interventional radiology to perform thoracentesis today for fluid analysis/cytology. Patient was seen and examined and case to be discussed at length with attending physician. <oJe Holt - Last Filed: 09/30/18 21:17> Objective - Vital Signs/Intake and Output Vital Signs (last 24 hours): Temp Pulse Resp BP Pulse Ox 98.2 F 118 H 18 134/78 96 09/30/18 17:25 09/30/18 18:00 09/30/18 17:25 09/30/18 17:40 09/30/18 08:00 Intake and Output: 09/30/18 10/01/18 18:59 06:59 Intake Total 1200 Balance 1200 - Medications Medications: Current Medications Arformoterol Tartrate (Brovana) 15 mcg IH [id number] [facility] Last Admin: 09/30/18 20:57 Dose: 15 mcg Budesonide (Pulmicort Respules) 0.5 mg IH [id number] [facility] Last Admin: 09/30/18 20:57 Dose: 0.5 mg Enoxaparin Sodium (Lovenox) 70 mg SC Q12H [facility]; Protocol Last Admin: 09/30/18 08:26 Dose: 70 mg Furosemide (Lasix) 40 mg IVP BID [facility] Last Admin: 09/30/18 17:40 Dose: 40 mg Guaifenesin/Dextromethorphan (Mucinex-Dm 600-30 Mg) 1 tab PO BID [facility] Last Admin: 09/30/18 17:39 Dose: 1 tab Metoprolol Tartrate (Lopressor) 100 mg PO BRKDIN [facility] Last Admin: 09/30/18 17:34 Dose: 100 mg Spironolactone (Aldactone) 25 mg PO BID [facility] Last Admin: 09/30/18 17:39 Dose: 25 mg - Labs Labs: 09/29/18 06:40 09/30/18 06:45 Assessment and Plan - Assessment and Plan (Free Text) Plan: Pt seen and examined by me. I have reviewed the note of the medical office coordinator and I agree with it. I have discussed the assessment and plan with the resident. I have reviewed the medications and the last labs.
[2018-09-30] MEDS: guaiFENesin-DM 600-30 mg ER Tab PO SCH ×2 (09:35→17:39)
[2018-09-30] MEDS: Arformoterol 15 mcg/2 ml Inh Sol IH SCH ×2 (13:34→20:57)
[2018-09-30] MEDS: Budesonide 0.5 mg/2 ml Inhal Susp UD IH SCH ×2 (13:34→20:57)
--- NOTE | 2018-09-30 14:53 | CP.PCM.PCO ---
Physician Communication Note - Physician Communication Note Physician Communication Note: thoracentesis pending
[2018-09-30 17:26] VITALS: TEMP 98.2
[2018-09-30 20:21] LABS: BODY FLUID TYPE PLEURAL
--- NOTE | 2018-09-30 20:31 | US ---
PROCEDURE: Ultrasound guided right thoracentesis. CLINICAL HISTORY: New onset right pleural effusion. Needs diagnostic and therapeutic right thoracentesis PHYSICIAN(S): Dominick Khalil MD. TECHNIQUE: The relative risks and indications of the procedure were explained to the patient and consent obtained. The patient was placed in a sitting position on the stretcher and sonography of the right chest performed. This revealed a small to moderate rightpleural effusion. A right posterolateral intercostal approach was selected and the area prepped and draped usual sterile fashion. 1% Xylocaine was used to anesthetize the skin and soft tissues. A 7 [place]orean thoracentesis catheter was trocared into the right pleural cavity and 1200 cc of machado fluid aspirated. The appropriate labs were sent. IMPRESSION: 1. Ultrasound guided right thoracentesis. 1200 cc of clear machado fluid was aspirated. The appropriate labs were sent
[2018-09-30 20:35] LABS: BF GROSS APPEARANCE SL CLOUDY (CLEAR); BODY FLUID TOTAL COUNT 100 (0-0)
[2018-09-30 23:55] VITALS: RESP 20; O2SAT 95
--- NOTE | 2018-10-01 02:00 | PN ---
DATE: 09/30/2018 SUBJECTIVE: The patient is seen sitting in bed, on telemetry. She remains in atrial fibrillation with moderate ventricular response. She states her dyspnea is improved. CURRENT MEDICATIONS: Include Pulmicort inhaler, Mucinex, Lovenox, metoprolol 50 mg b.i.d., Lasix 40 mg b.i.d., Brovana. PHYSICAL EXAMINATION: GENERAL: She is an elderly woman who appears comfortable at the present time. VITAL SIGNS: Her blood pressure is 136/80 with pulse of 100 to 110 in atrial fibrillation, respirations are 16. She is afebrile. HEENT: No JVD. CHEST: Bibasilar rales heard. HEART: PMI displaced laterally with a soft systolic murmur at the lower left sternal border as well as the apex and a soft diastolic murmur present at left sternal border. ABDOMEN: Soft, mildly obese, nontender with bowel sounds. EXTREMITIES: Trace ankle edema. DIAGNOSTIC DATA: Potassium 3.7, BUN and creatinine of 15 and 0.7. IMPRESSION: 1. Decompensated congestive heart failure, acute, diastolic, likely secondary to rapid atrial fibrillation and valvular heart disease. 2. 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 3. Atrial fibrillation with moderate ventricular rate response, likely due to hypertensive heart disease and valvular heart disease. 4. Rest of problems as noted. RECOMMENDATIONS: Consideration is being given to possible thoracentesis of her pleural effusion. IV diuretic therapy will be continued. Metoprolol will be increased to 100 mg b.i.d. Spironolactone will be added to her regimen as well. Eventual initiation of oral anticoagulant therapy will be appropriate. I will continue to follow and make further recommendation as appropriate. Rustam Alonso MD
--- NOTE | 2018-10-01 02:10 | PN ---
DATE: 09/30/2018 The patient was seen and examined. I do agree with the note of the clinical laboratory medical director. I was involved in the plan of care. The patient has a new-onset atrial fibrillation. She was also found to have a right-sided pleural effusion. She had an ultrasound, had 1200 mL clear tanned fluid that was aspirated and sent for evaluation. The patient's heart rate is controlled. She is currently receiving anticoagulation with Lovenox. She was seen by Cardiology. She has mitral regurgitation and aortic insufficiency. She says her cough is improved. The patient is on metoprolol for her rate control for the atrial fibrillation. She is being followed by Cardiology and Pulmonary. I appreciate their input. The patient is eating well and she does not have any pain. Her blood pressure is better controlled. Joe Holt MD
[2018-10-01 07:28] LABS: BLOOD UREA NITROGEN 20 mg/dL (7-21); CALCIUM 8.8 mg/dL (8.4-10.5); GFR NON-AFRICAN AMERICAN > 60
[2018-10-01] MEDS: Enoxaparin 80 mg Syringe SC SCH (07:44)
--- NOTE | 2018-10-01 07:44 | PN ---
DATE: 10/01/2018 SUBJECTIVE: The patient appears very comfortable this morning. She is not short of breath at rest. PHYSICAL EXAMINATION: VITAL SIGNS: Temperature is 98.2, pulse 93, respirations 18, blood pressure 136/88. Oxygen saturation on nasal cannula - 95%. HEENT: Normocephalic, atraumatic. No JVD. CARDIOVASCULAR: Systolic ejection murmur at the lower left sternal border. Positive S3 gallop. LUNGS: Improved breath sounds - right lower lobe. Minimal left basal crackles. No rhonchi. No wheezing. EXTREMITIES: Less edema, no cyanosis or clubbing. Calves are nontender to palpation. GASTROINTESTINAL: Abdomen is soft, nontender, nondistended. Bowel sounds are positive. SKIN: No acute rash. NEUROLOGIC: Exam limited at the present time. IMPRESSION: 1. Acute congestive heart failure. 2. Bilateral pleural effusions. 3. Rapid atrial fibrillation. 4. Mild bronchitis. PLAN: The patient appears very comfortable this morning. She is not short of breath at rest. She does state to feeling much, much better overall. On physical exam, her bronchospasm has resolved. In addition, the alveolar arterial gradient is also less. I will continue the current nebulizer treatments and inhaled steroids for now. The patient is status post thoracentesis by Dr. Dominick Khalil. Results are pending. I would continue with the treatment for congestive heart failure and atrial fibrillation as per Cardiology. Input by Dr. Maradiaga is noted. Repeat chest x-ray is ordered. Clinical status of the patient is significantly improved - compared to the initial presentation. However, given the above, the future status/prognosis for this elderly patient does remain guarded. I will discuss the above with the attending physician. Jarred Estrada MD MTDIsra
[2018-10-01 07:45] VITALS: PULSE 92
[2018-10-01] MEDS: Budesonide 0.5 mg/2 ml Inhal Susp UD IH SCH (08:03)
[2018-10-01] MEDS: Arformoterol 15 mcg/2 ml Inh Sol IH SCH (08:03)
[2018-10-01 09:07] VITALS: BP 132/78
[2018-10-01] MEDS: guaiFENesin-DM 600-30 mg ER Tab PO SCH (09:07)
--- NOTE | 2018-10-01 09:14 | RAD ---
Date of service: 10/01/2018 HISTORY: rt thora COMPARISON: 09/28/2018 TECHNIQUE: Chest PA and lateral views FINDINGS: LUNGS: Right lower lobe infiltrate PLEURA: There is a decreased right pleural effusion post thoracentesis. There is no pneumothorax. CARDIOVASCULAR: Aortic calcification Mild cardiomegaly no pulmonary vascular congestion. OSSEOUS STRUCTURES: No significant abnormalities. VISUALIZED UPPER ABDOMEN: Normal. OTHER FINDINGS: None. IMPRESSION: There is a decreased right pleural effusion post thoracentesis. There is no pneumothorax.
--- NOTE | 2018-10-01 10:53 | CP.PCM.DIS ---
<Mccarthy,Lei - Last Filed: 10/01/18 10:54> Provider - Provider Date of Admission: 09/28/18 12:12 Attending physician: Joe Holt MD Consults: 09/28/18 12:37 Cardiology Consult Routine Comment: Consulting Provider: Rustam Alonso Consulting Physician: Rustam Alonso Reason for Consult: new onset afib 09/29/18 09:20 Consult [Physician Consult] Routine Comment: Consulting Provider: Dominick Khalil Consulting Physician: Dominick Khalil Reason for Consult: Large right pleural effusion 09/29/18 09:21 Pulmonology Consult Routine Comment: Consulting Provider: Jarred Estrada Consulting Physician: Jarred Estrada Reason for Consult: Large R pleural effusion Time Spent in preparation of Discharge (in minutes): 50 Diagnosis - Discharge Diagnosis (1) Heart failure Status: Acute (2) New onset atrial fibrillation Status: Acute (3) Pleural effusion Status: Acute (4) Rapid atrial fibrillation Status: Acute Hospital Course - Lab Results Lab Results: Micro Results 09/28/18 14:30 Blood Blood Culture - Preliminary NO GROWTH AFTER 48 HOURS 09/28/18 14:00 Blood Blood Culture - Preliminary NO GROWTH AFTER 48 HOURS 09/28/18 18:00 Urine,Clean Catch Urine Culture - Final 10-50,000 CFU/ML. MULTIPLE SPECIES. PROBABLE CONTAMINATION. Most Recent Lab Values WBC 5.8 10^3/uL (4.5-11.0) D 09/29/18 06:40 RBC 4.02 10^6/uL (3.5-6.1) 09/29/18 06:40 Hgb 12.3 g/dL (12.0-16.0) 09/29/18 06:40 Hct 38.3 % (36.0-48.0) 09/29/18 06:40 MCV 95.3 fl (80.0-105.0) 09/29/18 06:40 MCH 30.6 pg (25.0-35.0) 09/29/18 06:40 MCHC 32.1 g/dl (31.0-37.0) 09/29/18 06:40 RDW 14.7 % (11.5-14.5) H 09/29/18 06:40 Plt Count 256 10^3/uL (120.0-450.0) 09/29/18 06:40 MPV 9.9 fl (7.0-11.0) 09/29/18 06:40 Neut % (Auto) 62.4 % (50.0-68.0) 09/29/18 06:40 Lymph % (Auto) 25.2 % (22.0-35.0) 09/29/18 06:40 Trego % (Auto) 11.3 % (1.0-6.0) H 09/29/18 06:40 Eos % (Auto) 0.9 % (1.5-5.0) L 09/29/18 06:40 Baso % (Auto) 0.2 % (0.0-3.0) 09/29/18 06:40 Lymph # (Auto) 1.5 (1.2-3.4) 09/29/18 06:40 Trego # (Auto) 0.7 (0.1-0.6) H 09/29/18 06:40 Eos # (Auto) 0.1 (0.0-0.7) 09/29/18 06:40 Baso # (Auto) 0.01 K/mm3 (0.0-2.0) 09/29/18 06:40 Absolute Neuts (auto) 3.60 (1.4-6.5) 09/29/18 06:40 Sodium 142 mmol/L (132-148) 10/01/18 06:30 Potassium 4.1 mmol/L (3.6-5.0) 10/01/18 06:30 Chloride 104 mmol/L (98-107) 10/01/18 06:30 Carbon Dioxide 32 mmol/L (21-33) 10/01/18 06:30 Anion Gap 10 (10-20) 10/01/18 06:30 BUN 20 mg/dL (7-21) 10/01/18 06:30 Creatinine 0.7 mg/dl (0.7-1.2) 10/01/18 06:30 Est GFR ( Amer) > 60 10/01/18 06:30 Est GFR (Non-Af Amer) > 60 10/01/18 06:30 Random Glucose 108 mg/dL (70-110) 10/01/18 06:30 Hemoglobin A1c 5.6 % (4.2-6.5) 09/29/18 07:00 Calcium 8.8 mg/dL (8.4-10.5) 10/01/18 06:30 Phosphorus 3.5 mg/dL (2.5-4.5) 09/29/18 06:40 Magnesium 2.1 mg/dL (1.7-2.2) 09/29/18 06:40 Total Bilirubin 1.6 mg/dL (0.2-1.3) H 09/29/18 06:40 AST 24 U/L (14-36) 09/29/18 06:40 ALT 42 U/L (7-56) 09/29/18 06:40 Alkaline Phosphatase 87 U/L (38-126) 09/29/18 06:40 Lactate Dehydrogenase 557 U/L (333-699) 09/28/18 11:17 Total Creatine Kinase 64 U/L (35-230) 09/28/18 11:17 Troponin I 0.02 ng/mL 09/29/18 06:40 NT-Pro-B Natriuret Pep 4070 pg/mL (0-450) H 09/28/18 11:17 Total Protein 6.5 g/dL (5.8-8.3) 09/29/18 06:40 Albumin 3.6 g/dL (3.0-4.8) 09/29/18 06:40 Globulin 3.0 gm/dL 09/29/18 06:40 Albumin/Globulin Ratio 1.2 (1.1-1.8) 09/29/18 06:40 Triglycerides 64 mg/dL (35-160) 09/29/18 07:00 Cholesterol 143 mg/dL (130-200) 09/29/18 07:00 LDL Cholesterol Direct 91 mg/dL (0-129) 09/29/18 07:00 HDL Cholesterol 46 mg/dL (29-60) 09/29/18 07:00 Free T4 1.87 ng/dL (0.78-2.19) 09/28/18 11:17 Total T3 1.10 ng/mL (0.97-1.69) 09/28/18 11:17 TSH 3rd Generation 4.73 mIU/mL (0.46-4.68) H 09/28/18 11:17 Urine Color Yellow (YELLOW) 09/28/18 14:30 Urine Appearance Clear (CLEAR) 09/28/18 14:30 Urine pH 6.0 (4.7-8.0) 09/28/18 14:30 Ur Specific [place] 1.015 (1.005-1.035) 09/28/18 14:30 Urine Protein 30 mg/dL (<30 mg/dL) H 09/28/18 14:30 Urine Glucose (UA) Negative mg/dL (NEGATIVE) 09/28/18 14:30 Urine Ketones Trace mg/dL (NEGATIVE) H 09/28/18 14:30 Urine Blood Negative (NEGATIVE) 09/28/18 14:30 Urine Nitrate Negative (NEGATIVE) 09/28/18 14:30 Urine Bilirubin Negative (NEGATIVE) 09/28/18 14: Urine Urobilinogen 0.2 E.U./dL (<1 E.U./dL) 09/28/18 14:30 Ur Leukocyte Esterase Trace Cecilia/uL (NEGATIVE) H 09/28/18 14:30 Urine RBC 0 - 2 /hpf (0-2) 09/28/18 14:30 Urine WBC 5 - 10 /hpf (0-6) H 09/28/18 14:30 Ur Epithelial Cells 6 - 8 /hpf (0-5) H 09/28/18 14:30 Urine Bacteria Many /hpf (NONE) 09/28/18 14:30 Fluid Source Pleural 09/30/18 20:20 Fluid Appearance Sl cloudy (CLEAR) 09/30/18 20:20 Fluid WBC 1913.0 /uL (0.0-300.0) H 09/30/18 20:20 Fluid RBC 2355.0 /uL (0.0-0.0) H 09/30/18 20:20 Fluid Tot Cell Count 100 (0-0) H 09/30/18 20:20 Fluid Mononuclear Cell 95.0 % (0-0) H 09/30/18 20:20 Fl Polymorphonucl Cell 5.0 % (0-0) H 09/30/18 20:20 Fluid Comment Yellow 09/30/18 20:20 Thoracentesis Fluid pH 7.5 09/30/18 20:20 - Hospital Course Hospital Course: Lei Mccarthy D.O. PGY-3, Internal Medicine Resident, Dr. Holt's Service, Discharge Summary 73-year-old female with a past medical history of hypertension who presents from her primary medical doctor's office after she was found to have new onset of atrial fibrillation. Patient was admitted for further evaluation and management. Patient had a chest x-ray in the emergency room which showed moderate right and small left pleural effusions, suspect underlying compressive atelectasis however superimposed pneumonia cannot be excluded as well as moderate pulmonary venous congestion. Patient had an EKG done in the ER which revealed that the patient was an A. fib with RVR at a rate of 155. At that time cardiology was consulted and patient's rate was controlled with Cardizem and then later Cardizem drip. To further elucidate whether there was an underlying pneumonia the patient had a chest CT which showed large right pleural effusion with small left effusion and right lower lobe consolidation. However as patient did not have any other signs of infection discussed to be compressive atelectasis only and patient was not on antibiotics. Patient heart rate was controlled with Cardizem drip and was later transitioned to metoprolol by cardiology. Pulmonology and interventional radiology was consulted as well. Echocardiogram revealed that the patient had an ejection fraction of about 55% as well as biatrial enlargement, mild concentric LVH, moderate MR, moderate AI, moderate TR. Cardiology believes that uncontrolled blood pressure and valvular disease because the ablation patient's thyroid panel was normal. Patient was evaluated by interventional radiology and underwent thoracentesis with drainage of 1200 mL of machado fluid. Patient had negative blood cultures 2 out of 2 on day 2. Patient's urine culture was likely contaminated. Patient's clinical course continue to improve. Patient was able to ambulate around the halls without assistance. Patient had a follow-up chest x-ray which showed decrease in the right pleural effusion post thoracentesis and no pneumothorax. Patient was seen and examined at bedside this morning. Doing significantly better, only complaint is that she did not have a good night sleep last night. Has been able to walk around without shortness of breath. Has been using her incentive spirometer since the beginning of the admission. Extensive discussion was had with the patient about the importance of taking all of her new medications including her anticoagulation with Eliquis, her diuretics furosemide and spironolactone, as well as her rate controlling metoprolol for atrial fibrillation. Reinforced the importance of making follow-up appointments with pulmonary as well as cardiology. Information how to make appointments was given. Also called patient's son at [phone] and discussed the above plan, all new medications, and all medications were sent to our outpatient pharmacy so that they could be delivered at the bedside to ensure compliance. All questions welcomed and answered to the verbal satisfaction of both the patient and the son on the cell phone. Patient is to follow-up with primary medical doctor Dr. Mary within 1 week time. Will follow up the patient's thoracentesis results. - Date & Time of H&P Date of H&P: 10/01/18 Time of H&P: 10:00 Discharge Exam - Head Exam Head Exam: ATRAUMATIC, NORMOCEPHALIC - Eye Exam Eye Exam: EOMI, PERRL. absent: Scleral icterus - ENT Exam ENT Exam: Mucous Membranes Moist, Normal Oropharynx - Neck Exam Neck exam: Normal Inspection - Respiratory Exam Respiratory Exam: Clear to PA & Lateral. absent: Rales, Rhonchi, Wheezes - Cardiovascular Exam Cardiovascular Exam: Irregular Rhythm, +S1, +S2. absent: Rubs - GI/Abdominal Exam GI & Abdominal Exam: Normal Bowel Sounds, Soft. absent: Distended, Tenderness - Extremities Exam Extremities exam: normal capillary refill, pedal pulses present - Neurological Exam Neurological exam: Alert, CN II-XII Intact, Oriented x3 - Psychiatric Exam Psychiatric exam: Normal Affect, Normal Mood - Skin Skin Exam: Dry, Warm Discharge Plan - Discharge Medications Prescriptions: Apixaban [Eliquis] 10 mg PO BID 30 Days #90 tab Furosemide [Lasix] 40 mg PO BID #60 tab Metoprolol Tartrate [Lopressor] 100 mg PO BRKDIN #120 tab Spironolactone [Aldactone] 25 mg PO BID #60 tab - Follow Up Plan Condition: GUARDED Disposition: HOME/ ROUTINE Instructions: Heart Failure, Adult (DC), Pleural Effusion (DC), Medicines for Atrial Fibrillation, Going Home on Blood Thinners , Heart Failure Exercise Guide, Atrial Fibrillation (DC) Additional Instructions: 1. Follow up with PMD within 1 or 2 week. 2. Follow up with auto damage estimator for results of thoracentesis. 3. Maintain activity. 4. Avoid excessive salt in take. 5. Call PMD or return to ER for any worsening symptoms or concerns. Referrals: Jarred Estrada MD [Staff Provider] - Rustam Alonso MD [Staff Provider] - <Joe Holt - Last Filed: 10/01/18 17:00> Provider - Provider Date of Admission: 09/28/18 12:12 Attending physician: Joe Holt MD Consults: 09/28/18 12:37 Cardiology Consult Routine Comment: Consulting Provider: Rustam Alonso Consulting Physician: Rustam Alonso Reason for Consult: new onset afib 09/29/18 09:20 Consult [Physician Consult] Routine Comment: Consulting Provider: Dominick Khalil Consulting Physician: Dominick Khalil Reason for Consult: Large right pleural effusion 09/29/18 09:21 Pulmonology Consult Routine Comment: Consulting Provider: Jarred Estrada Consulting Physician: Jarred Estrada Reason for Consult: Large R pleural effusion Hospital Course - Lab Results Lab Results: Micro Results 09/30/18 20:20 Other: Please Indicate Fungal Culture - Preliminary 09/28/18 14:30 Blood Blood Culture - Preliminary NO GROWTH AFTER 3 DAYS 09/28/18 14:00 Blood Blood Culture - Preliminary NO GROWTH AFTER 3 DAYS 09/30/18 20:20 Pleural Fluid Gram Stain - Final 09/28/18 18:00 Urine,Clean Catch Urine Culture - Final 10-50,000 CFU/ML. MULTIPLE SPECIES. PROBABLE CONTAMINATION. Most Recent Lab Values WBC 5.8 10^3/uL (4.5-11.0) D 09/29/18 06:40 RBC 4.02 10^6/uL (3.5-6.1) 09/29/18 06:40 Hgb 12.3 g/dL (12.0-16.0) 09/29/18 06:40 Hct 38.3 % (36.0-48.0) 09/29/18 06:40 MCV 95.3 fl (80.0-105.0) 09/29/18 06:40 MCH 30.6 pg (25.0-35.0) 09/29/18 06:40 MCHC 32.1 g/dl (31.0-37.0) 09/29/18 06:40 RDW 14.7 % (11.5-14.5) H 09/29/18 06:40 Plt Count 256 10^3/uL (120.0-450.0) 09/29/18 06:40 MPV 9.9 fl (7.0-11.0) 09/29/18 06:40 Neut % (Auto) 62.4 % (50.0-68.0) 09/29/18 06:40 Lymph % (Auto) 25.2 % (22.0-35.0) 09/29/18 06:40 Trego % (Auto) 11.3 % (1.0-6.0) H 09/29/18 06:40 Eos % (Auto) 0.9 % (1.5-5.0) L 09/29/18 06:40 Baso % (Auto) 0.2 % (0.0-3.0) 09/29/18 06:40 Lymph # (Auto) 1.5 (1.2-3.4) 09/29/18 06:40 Trego # (Auto) 0.7 (0.1-0.6) H 09/29/18 06:40 Eos # (Auto) 0.1 (0.0-0.7) 09/29/18 06:40 Baso # (Auto) 0.01 K/mm3 (0.0-2.0) 09/29/18 06:40 Absolute Neuts (auto) 3.60 (1.4-6.5) 09/29/18 06:40 Sodium 142 mmol/L (132-148) 10/01/18 06:30 Potassium 4.1 mmol/L (3.6-5.0) 10/01/18 06:30 Chloride 104 mmol/L (98-107) 10/01/18 06:30 Carbon Dioxide 32 mmol/L (21-33) 10/01/18 06:30 Anion Gap 10 (10-20) 10/01/18 06:30 BUN 20 mg/dL (7-21) 10/01/18 06:30 Creatinine 0.7 mg/dl (0.7-1.2) 10/01/18 06:30 Est GFR ( Amer) > 60 10/01/18 06:30 Est GFR (Non-Af Amer) > 60 10/01/18 06:30 Random Glucose 108 mg/dL (70-110) 10/01/18 06:30 Hemoglobin A1c 5.6 % (4.2-6.5) 09/29/18 07:00 Calcium 8.8 mg/dL (8.4-10.5) 10/01/18 06:30 Phosphorus 3.5 mg/dL (2.5-4.5) 09/29/18 06:40 Magnesium 2.1 mg/dL (1.7-2.2) 09/29/18 06:40 Total Bilirubin 1.6 mg/dL (0.2-1.3) H 09/29/18 06:40 AST 24 U/L (14-36) 09/29/18 06:40 ALT 42 U/L (7-56) 09/29/18 06:40 Alkaline Phosphatase 87 U/L (38-126) 09/29/18 06:40 Lactate Dehydrogenase 557 U/L (333-699) 09/28/18 11:17 Total Creatine Kinase 64 U/L (35-230) 09/28/18 11:17 Troponin I 0.02 ng/mL 09/29/18 06:40 NT-Pro-B Natriuret Pep 4070 pg/mL (0-450) H 09/28/18 11:17 Total Protein 6.5 g/dL (5.8-8.3) 09/29/18 06:40 Albumin 3.6 g/dL (3.0-4.8) 09/29/18 06:40 Globulin 3.0 gm/dL 09/29/18 06:40 Albumin/Globulin Ratio 1.2 (1.1-1.8) 09/29/18 06:40 Triglycerides 64 mg/dL (35-160) 09/29/18 07:00 Cholesterol 143 mg/dL (130-200) 09/29/18 07:00 LDL Cholesterol Direct 91 mg/dL (0-129) 09/29/18 07:00 HDL Cholesterol 46 mg/dL (29-60) 09/29/18 07:00 Free T4 1.87 ng/dL (0.78-2.19) 09/28/18 11:17 Total T3 1.10 ng/mL (0.97-1.69) 09/28/18 11:17 TSH 3rd Generation 4.73 mIU/mL (0.46-4.68) H 09/28/18 11:17 Urine Color Yellow (YELLOW) 09/28/18 14:30 Urine Appearance Clear (CLEAR) 09/28/18 14:30 Urine pH 6.0 (4.7-8.0) 09/28/18 14:30 Ur Specific [place] 1.015 (1.005-1.035) 09/28/18 14:30 Urine Protein 30 mg/dL (<30 mg/dL) H 09/28/18 14:30 Urine Glucose (UA) Negative mg/dL (NEGATIVE) 09/28/18 14: Urine Ketones Trace mg/dL (NEGATIVE) H 09/28/18 14:30 Urine Blood Negative (NEGATIVE) 09/28/18 14:30 Urine Nitrate Negative (NEGATIVE) 09/28/18 14: Urine Bilirubin Negative (NEGATIVE) 09/28/18 14: Urine Urobilinogen 0.2 E.U./dL (<1 E.U./dL) 09/28/18 14:30 Ur Leukocyte Esterase Trace Cecilia/uL (NEGATIVE) H 09/28/18 14:30 Urine RBC 0 - 2 /hpf (0-2) 09/28/18 14:30 Urine WBC 5 - 10 /hpf (0-6) H 09/28/18 14:30 Ur Epithelial Cells 6 - 8 /hpf (0-5) H 09/28/18 14:30 Urine Bacteria Many /hpf (NONE) 09/28/18 14:30 Fluid Source Pleural 09/30/18 20:20 Fluid Appearance Sl cloudy (CLEAR) 09/30/18 20:20 Fluid WBC 1913.0 /uL (0.0-300.0) H 09/30/18 20:20 Fluid RBC 2355.0 /uL (0.0-0.0) H 09/30/18 20:20 Fluid Tot Cell Count 100 (0-0) H 09/30/18 20:20 Fluid Mononuclear Cell 95.0 % (0-0) H 09/30/18 20:20 Fl Polymorphonucl Cell 5.0 % (0-0) H 09/30/18 20:20 Fluid Comment Yellow 09/30/18 20:20 Thoracentesis Fluid pH 7.5 09/30/18 20:20 - Hospital Course Hospital Course: Pt seen and examined by me. I have reviewed the note of the medical cash poster and I agree with it. I have discussed the assessment and plan with the resident. I have reviewed the medications and the last labs.
--- NOTE | 2018-10-01 19:21 | PN ---
DATE: 10/01/2018 SUBJECTIVE: The patient is seen sitting in chair on telemetry. She is feeling better. She underwent thoracentesis yesterday with removal of 700 mL. Her dyspnea is improved. Heart rate control is adequate. Her current medications include Aldactone 25 mg b.i.d., Brovana, Eliquis 5 mg b.i.d., Lasix 40 mg IV b.i.d., metoprolol 100 mg b.i.d., and Pulmicort. OBJECTIVE: GENERAL: She is a middle-aged woman who appears comfortable at the present time. VITAL SIGNS: Blood pressure is 130/70 with pulse of 80 to 90 in atrial fibrillation, respirations are 14. She is afebrile. HEENT: No JVD. CHEST: Bilateral scattered rhonchi. HEART: Rhythm is irregular regular with systolic murmur at lower left sternal border as well as a soft diastolic murmur at the left sternal border as well. ABDOMEN: Soft and nontender with normoactive bowel sounds. EXTREMITIES: No edema. DIAGNOSTIC DATA: Potassium 4.1, BUN and creatinine 20 and 0.7. Chest x-ray shows decreased right pleural effusion, persistent cardiomegaly is noted. IMPRESSION: 1. Decompensated congestive heart failure, acute diastolic, likely secondary to valvular heart disease and atrial fibrillation. 2. Multivalvular heart disease with mitral, aortic and tricuspid insufficiency. 3.. Atrial fibrillation with fair heart rate control. RECOMMENDATIONS: Her current medications will be continued for now. From a cardiac standpoint, she appears stable for discharge home at this time and outpatient followup will be arranged as needed. Continued sodium and fluid restriction were advised as well. Rustam Alonso MD
--- NOTE | 2018-10-02 01:29 | DS ---
HOSPITAL COURSE: The patient was seen and examined. I do agree with the note of the medical equipment repair technician. I was involved in the plan of care. The patient had new onset of atrial fibrillation. The patient was placed on anticoagulation orally and is going to be discharged home today. She had a right pleural effusion and had that drained. She says she is feeling better. Her cough has improved. The patient had an echocardiogram that showed an EF of 55%. She is going to be following up with her buckle frame shaper, Dr. Alonso. The patient has blood cultures which have been negative. She is going to follow with her primary care doctor in 1 to 2 weeks. CONDITION: Stable. ACTIVITIES: As tolerated. Joe Holt MD
[2018-10-06 07:17] LABS: TOTAL PROTEIN PLEURAL FLUID 3.1 g/dL
== END 2018-10-01 13:54 | disposition home or self-care (01) | DRG 308 ==
LOC: ED 10:57 → ERH 12:12 → 2RNO 14:57
PROVIDERS: ADMIT Internal Medicine Nephrology; ATTEND Internal Medicine Nephrology
PROC: 3E0F7GC Introduction of Other Therapeutic Substance into Respiratory Tract, Via Natural or Artificial Opening (ICD-10-PCS; 2018-09-29)
PROC: 0W993ZZ Drainage of Right Pleural Cavity, Percutaneous Approach (ICD-10-PCS; principal; 2018-09-30 17:00)
DX: I48.91 Unspecified atrial fibrillation (principal); I50.33 Acute on chronic diastolic (congestive) heart failure; J90 Pleural effusion, not elsewhere classified; I11.0 Hypertensive heart disease with heart failure; R19.7 Diarrhea, unspecified; I08.3 Combined rheumatic disorders of mitral, aortic and tricuspid valves; J40 Bronchitis, not specified as acute or chronic